=== PATIENT | male | born 1995 | race Native Hawaiian/Other Pacific Islander ===

== ENCOUNTER 2017-03-13 11:54 | Emergency (ER) | payer OTHER ==
[~2017-03-13] VITALS: Ht 170.2 cm; Wt 80.7 kg
[2017-03-13] MEDS ORDERED: LEXA5TAB13 PO (12:01)
[2017-03-13] MEDS ORDERED: LORA-376 PO (12:01)
[2017-03-13] MEDS ORDERED: VIST25CA PO (12:01)
--- NOTE | 2017-03-13 12:59 | REP ---
Chest x-ray: Two views. History: Chest pain. . Comparison study: No comparison study. . Findings: The lungs are well inflated and free of infiltrate. The pleural angles are sharp. The heart size is normal. Pulmonary vasculature is not increased. No significant bony abnormality is seen. Impression: Negative chest x-ray. Signed by Js Gee MD 03/13/2017 12:50 P
[2017-03-13] MEDS ORDERED: LORazepam 1 MG TAB PO ONE ×2 (15:15)
[2017-03-13 15:21] VITALS: BP 149/85
== END 2017-03-13 15:30 | disposition home or self-care (01) ==
LOC: M ED 12:16
DX: F41.9 Anxiety disorder, unspecified (principal); Z79.899 Other long term (current) drug therapy

== ENCOUNTER → 2019-12-02 | Outpatient (CLI) | payer OTHER ==
[~2019-12-02] MED LIST: LEXA5TAB13 PO; LORA0.5T5 PO; VIST25CA PO
--- NOTE | 2019-12-02 15:55 | REP ---
Clinical: Cyst. Technique: AP, lateral, bilateral oblique views left wrist . Findings: The carpal bones, surrounding osseous structures, soft tissues, and joint spaces are normal. There is no evidence for acute fracture or dislocation. No subcutaneous emphysema or radiodense foreign body. Impression: Normal wrist series. No acute fracture or dislocation Electronically Signed by Gabe Hudson MD 12/02/2019 02:06 P
== END ==
LOC: M LRY 13:53
PROVIDERS: ATTEND Nurse Practitioner Family
DX: R22.32 Localized swelling, mass and lump, left upper limb (principal)
CPT/HCPCS: 73110; G0463

== ENCOUNTER → 2021-05-06 | Outpatient (REF) | payer OTHER ==
[2021-05-06 11:01] LABS: SEMEN APPEARANCE OPAQUE (OPAQUE); SEMEN VISCOSITY LIQUID (LIQUID); SEMEN VOLUME 1.2 ml (2.0-5.0); WBC CONCENTRATION >1 M/ml (<=1 M/ml)
[2021-05-06 11:02] LABS: SPERM CONCENTRATION 42.3 M/ml (>=15.0)
== END ==
LOC: M LAB REF 10:54
PROVIDERS: ATTEND Obstetrics & Gynecology Obstetrics
DX: Z31.41 Encounter for fertility testing (principal)